=== PATIENT | male | born 1940 | race African-American/Black ===

== ENCOUNTER 2020-07-16 09:30 | Emergency (ER) | payer OTHER, MEDICAID ==
[~2020-07-16] VITALS: Ht 175.3 cm; Wt 98.0 kg
[2020-07-16 09:36] VITALS: BP 122/71
== END 2020-07-16 10:12 | disposition home or self-care (01) ==
LOC: ER 09:30
DX: T85.328A Displacement of other ocular prosthetic devices, implants and grafts, initial encounter (principal); Y77.3 Surgical instruments, materials and ophthalmic devices (including sutures) associated with adverse incidents; Y92.89 Other specified places as the place of occurrence of the external cause; H54.7 Unspecified visual loss
CPT/HCPCS: 93005; 99283

== ENCOUNTER 2021-07-29 10:44 | Emergency (ER) | payer OTHER, MEDICAID ==
[~2021-07-29] VITALS: Ht 175.3 cm; Wt 84.0 kg
[2021-07-29 11:44] LABS: CHLORIDE 107 mEq/L (98-107)
[2021-07-29 11:55] LABS: INR 1.1; PARTIAL THROMBOPLASTIN TIME 23.1 sec (23.4-31.0)
[2021-07-29 12:06] LABS: BASOPHILS % 0.6 % (0.0-2.0); EOSINOPHILS % 1.2 % (0.0-5.0); HEMATOCRIT. 27.1 % (42.0-52.0); HEMOGLOBIN. 9.2 g/dL (14.0-18.0); LYMPHOCYTES % 11.7 % (20.0-50.0); MEAN CORPUSCULAR HEMOGLOBIN 31.3 pg (28.0-32.0); MEAN CORPUSCULAR VOLUME 92.1 fL (80.0-94.0); MEAN PLATELET VOLUME 8.1 fl (7.4-10.4); MONOCYTES % 10.6 % (2.0-8.0); NEUTROPHILS % 75.9 % (40.0-76.0); PLATELET 267 x1000/uL (130-400); RED BLOOD CELL COUNT 2.94 mill/uL (4.7-6.1); RED CELL DISTRIBUTION WIDTH 17.4 % (11.6-14.6)
[2021-07-29] MEDS ORDERED: SODIUM CHLORIDE 0.9% 1,000 ML IV NR (13:00)
[2021-07-29] MEDS ORDERED: ACETAMINOPHEN 325MG TABLET PO ONE (13:30)
[2021-07-29 14:49] VITALS: BP 147/68
== END 2021-07-29 14:48 | disposition home or self-care (01) ==
LOC: ER 10:44
DX: I87.2 Venous insufficiency (chronic) (peripheral) (principal); M79.89 Other specified soft tissue disorders; I10 Essential (primary) hypertension
CPT/HCPCS: 36415; 80053; 85025; 93971; 99284

== ENCOUNTER 2022-01-10 09:35 | Emergency (ER) | payer OTHER, MEDICAID ==
[~2022-01-10] VITALS: Ht 177.8 cm; Wt 100.0 kg
[2022-01-10 09:55] VITALS: BP 165/72
== END 2022-01-10 12:09 | disposition home or self-care (01) ==
LOC: ER 09:35
DX: Z13.9 Encounter for screening, unspecified (principal)
CPT/HCPCS: 99281

== ENCOUNTER 2022-01-27 09:57 | Inpatient (IN) | payer OTHER, MEDICAID ==
[~2022-01-27] VITALS: Ht 172.7 cm; Wt 87.1 kg
[2022-01-27 11:22] LABS: BASOPHILS % 0.5 % (0.0-2.0); EOSINOPHILS % 0.2 % (0.0-5.0); HEMATOCRIT. 29.4 % (42.0-52.0); HEMOGLOBIN. 9.7 g/dL (14.0-18.0); MEAN CORPUSCULAR HEMOGLOBIN 29.2 pg (28.0-32.0); MEAN CORPUSCULAR VOLUME 88.4 fL (80.0-94.0); NEUTROPHILS % 81.3 % (40.0-76.0); PLATELET 292 x1000/uL (130-400); RED BLOOD CELL COUNT 3.33 mill/uL (4.7-6.1); RED CELL DISTRIBUTION WIDTH 19.3 % (11.6-14.6)
[2022-01-27 11:25] LABS: CHLORIDE 101 mEq/L (98-107)
[2022-01-27 11:29] LABS: INR 1.1; PARTIAL THROMBOPLASTIN TIME 30.1 sec (23.4-31.0); PROTHROMBIN TIME 11.5 sec (9.6-11.0)
[2022-01-27] MEDS ORDERED: IBUPROFEN 400MG TABLET PO ONE (11:45)
[2022-01-27] MEDS ORDERED: ASPIRIN 325MG TABLET PO ONE (12:00)
[2022-01-27] MEDS ORDERED: ASPIRIN 325MG TABLET PO SCH (14:30)
[2022-01-27 16:00] VITALS: BP 146/53
[2022-01-27 16:30] VITALS: BP 146/53
[2022-01-27] MEDS ORDERED: DOCUSATE SODIUM 100MG CAPSULE PO PRN (19:45)
[2022-01-27] MEDS ORDERED: ONDANSETRON HCL 4MG/2ML INJ IV PRN (19:45)
[2022-01-27] MEDS ORDERED: ACETAMINOPHEN 325MG TABLET PO PRN (19:45)
[2022-01-27] MEDS ORDERED: IPRATROPIUM/ALBUTEROL 0.5-3(2.5)MG/3ML NEB HHN PRN (19:45)
[2022-01-27] MEDS ORDERED: CLONIDINE 0.1MG TABLET PO PRN (19:45)
[2022-01-27 20:00] VITALS: BP 112/58
[2022-01-27] MEDS ORDERED: NALOXONE HCL 0.4MG/ML VIAL IV PRN (20:00)
[2022-01-28] VITALS (7 sets, daily range): BP systolic 110–157; BP diastolic 50–73
[2022-01-28 07:01] LABS: BASOPHILS % 0.7 % (0.0-2.0); EOSINOPHILS % 0.6 % (0.0-5.0); HEMATOCRIT. 27.4 % (42.0-52.0); HEMOGLOBIN. 9.1 g/dL (14.0-18.0); LYMPHOCYTES % 15.4 % (20.0-50.0); MEAN CORPUSCULAR HEMOGLOBIN 29.2 pg (28.0-32.0); MEAN PLATELET VOLUME 8.5 fl (7.4-10.4); MONOCYTES % 10.7 % (2.0-8.0); NEUTROPHILS % 72.6 % (40.0-76.0); PLATELET 288 x1000/uL (130-400); RED BLOOD CELL COUNT 3.12 mill/uL (4.7-6.1); RED CELL DISTRIBUTION WIDTH 19.5 % (11.6-14.6)
[2022-01-28] MEDS: FUROSEMIDE 40MG/4ML VIAL IV SCH ×2 (08:12→16:59)
[2022-01-28] MEDS: ENOXAPARIN 100MG/ML SYR SUBCUT SCH (10:22)
[2022-01-28 18:38] LABS: *AMPHETAMINES SCREEN URINE NEGATIVE (NEGATIVE); *BARBITURATES SCREEN URINE NEGATIVE (NEGATIVE); *BENZODIAZEPINES SCREEN URINE NEGATIVE (NEGATIVE); *COCAINE SCREEN URINE NEGATIVE (NEGATIVE); CANNABINOID URINE SCREEN NEGATIVE (NEGATIVE); METHADONE URINE SCREEN NEGATIVE (NEGATIVE); OPIATES URINE SCREEN NEGATIVE (NEGATIVE); PHENCYCLIDINE URINE SCREEN NEGATIVE (NEGATIVE)
[2022-01-28] MEDS: HYDROCODONE/ACETAMINOPHEN 5/325MG TABLET PO PRN (23:18)
[2022-01-29] VITALS: BP 119/71
[2022-01-29] MEDS: ACETAMINOPHEN 325MG TABLET PO PRN ×2 (00:23→21:42)
[2022-01-29] MEDS: LORAZEPAM 0.5MG TABLET PO PRN ×2 (00:23→21:41)
[2022-01-29 04:00] VITALS: BP 124/63
[2022-01-29] MEDS: HYDROCODONE/ACETAMINOPHEN 5/325MG TABLET PO PRN (04:55)
[2022-01-29 06:24] LABS: EOSINOPHILS % 0.4 % (0.0-5.0); HEMATOCRIT. 25.5 % (42.0-52.0); HEMOGLOBIN. 8.4 g/dL (14.0-18.0); LYMPHOCYTES % 13.3 % (20.0-50.0); MEAN CORPUSCULAR HEMOGLOBIN 28.9 pg (28.0-32.0); MEAN CORPUSCULAR VOLUME 88.2 fL (80.0-94.0); MONOCYTES % 11.7 % (2.0-8.0); NEUTROPHILS % 73.6 % (40.0-76.0); RED BLOOD CELL COUNT 2.89 mill/uL (4.7-6.1); RED CELL DISTRIBUTION WIDTH 19.1 % (11.6-14.6)
[2022-01-29] MEDS: FUROSEMIDE 40MG/4ML VIAL IV SCH ×2 (06:24→09:13)
[2022-01-29 07:15] LABS: PHOSPHORUS 3.7 mg/dL (2.5-4.9)
[2022-01-29 07:38] VITALS: BP 107/62
[2022-01-29 08:42] LABS: PLATELET 298 x1000/uL (130-400)
[2022-01-29] MEDS: ENOXAPARIN 100MG/ML SYR SUBCUT SCH (09:13)
[2022-01-29 11:55] VITALS: BP 116/53
[2022-01-29 15:18] VITALS: BP 100/66
[2022-01-29 15:46] LABS: CLARITY URINE CLEAR (CLEAR); COLOR URINE YELLOW (YELLOW); KETONES URINE NEGATIVE (NEGATIVE); LEUKOCYTE ESTERASE URINE 2+ (NEGATIVE); NITRITE URINE NEGATIVE (NEGATIVE); OCCULT BLOOD URINE NEGATIVE (NEGATIVE); PROTEIN URINE NEGATIVE (NEGATIVE); SPECIFIC GRAVITY URINE 1.008 (1.005-1.030); UROBILINOGEN URINE 0.2 E.U./dL (0.2-1.0)
[2022-01-29 20:00] VITALS: BP 130/64
[2022-01-30] VITALS: BP 121/60
[2022-01-30 04:00] VITALS: BP 103/60
[2022-01-30] MEDS: HYDROCODONE/ACETAMINOPHEN 5/325MG TABLET PO PRN ×2 (05:45→13:36)
[2022-01-30 08:00] VITALS: BP 115/62
[2022-01-30 08:15] LABS: BASOPHILS % 0.3 % (0.0-2.0); EOSINOPHILS % 0.5 % (0.0-5.0); HEMATOCRIT. 26.7 % (42.0-52.0); HEMOGLOBIN. 8.9 g/dL (14.0-18.0); LYMPHOCYTES % 13.6 % (20.0-50.0); MEAN CORPUSCULAR HEMOGLOBIN 28.9 pg (28.0-32.0); MEAN CORPUSCULAR VOLUME 86.8 fL (80.0-94.0); MEAN PLATELET VOLUME 8.2 fl (7.4-10.4); MONOCYTES % 9.4 % (2.0-8.0); NEUTROPHILS % 76.2 % (40.0-76.0); PLATELET 352 x1000/uL (130-400); RED BLOOD CELL COUNT 3.07 mill/uL (4.7-6.1)
[2022-01-30 09:06] LABS: PHOSPHORUS 3.7 mg/dL (2.5-4.9)
[2022-01-30 09:10] LABS: IMMUNOGLOBULIN A 265 mg/dL (61-437); IMMUNOGLOBULIN G 1737 mg/dL (603-1613); IMMUNOGLOBULIN M 139 mg/dL (15-143)
[2022-01-30 12:00] VITALS: BP 120/66
[2022-01-30] MEDS: FUROSEMIDE 40MG TABLET PO SCH (13:36)
[2022-01-30 16:00] VITALS: BP 145/74
[2022-01-30] MEDS: APIXABAN 5 MG TABLET PO SCH (17:49)
[2022-01-30 20:00] VITALS: BP 118/56
[2022-01-30] MEDS: LORAZEPAM 0.5MG TABLET PO PRN (20:22)
[2022-01-30] MEDS: ACETAMINOPHEN 325MG TABLET PO PRN (20:23)
[2022-01-31] VITALS (8 sets, daily range): BP systolic 94–139; BP diastolic 45–67
[2022-01-31 07:39] LABS: BASOPHILS % 0.3 % (0.0-2.0); EOSINOPHILS % 0.5 % (0.0-5.0); HEMATOCRIT. 24.9 % (42.0-52.0); HEMOGLOBIN. 8.5 g/dL (14.0-18.0); LYMPHOCYTES % 8.9 % (20.0-50.0); MEAN CORPUSCULAR HEMOGLOBIN 29.4 pg (28.0-32.0); MONOCYTES % 7.7 % (2.0-8.0); NEUTROPHILS % 82.6 % (40.0-76.0); PLATELET 390 x1000/uL (130-400); RED CELL DISTRIBUTION WIDTH 19.1 % (11.6-14.6)
[2022-01-31 08:07] LABS: PHOSPHORUS 3.4 mg/dL (2.5-4.9)
[2022-01-31 09:06] LABS: IMMUNOGLOBULIN A 256 mg/dL (61-437); IMMUNOGLOBULIN G 1795 mg/dL (603-1613); IMMUNOGLOBULIN M 139 mg/dL (15-143)
[2022-01-31] MEDS: FUROSEMIDE 40MG TABLET PO SCH (09:30)
[2022-01-31] MEDS: APIXABAN 5 MG TABLET PO SCH ×2 (09:30→17:54)
[2022-01-31] MEDS: BICALUTAMIDE 50 MG TABLET PO SCH (09:31)
[2022-01-31] MEDS: ACETAMINOPHEN 325MG TABLET PO PRN (09:31)
[2022-02-01] VITALS (7 sets, daily range): BP systolic 115–145; BP diastolic 51–70
[2022-02-01 07:29] LABS: BASOPHILS % 0.3 % (0.0-2.0); EOSINOPHILS % 0.4 % (0.0-5.0); HEMOGLOBIN. 8.7 g/dL (14.0-18.0); LYMPHOCYTES % 8.7 % (20.0-50.0); MEAN CORPUSCULAR HEMOGLOBIN 28.8 pg (28.0-32.0); MEAN CORPUSCULAR VOLUME 86.3 fL (80.0-94.0); MEAN PLATELET VOLUME 7.9 fl (7.4-10.4); MONOCYTES % 8.4 % (2.0-8.0); NEUTROPHILS % 82.2 % (40.0-76.0); PLATELET 416 x1000/uL (130-400); RED BLOOD CELL COUNT 3.01 mill/uL (4.7-6.1); RED CELL DISTRIBUTION WIDTH 18.4 % (11.6-14.6)
[2022-02-01 07:54] LABS: PHOSPHORUS 3.2 mg/dL (2.5-4.9)
[2022-02-01] MEDS: FUROSEMIDE 40MG TABLET PO SCH (09:39)
[2022-02-01] MEDS: BICALUTAMIDE 50 MG TABLET PO SCH (09:39)
[2022-02-01] MEDS: APIXABAN 5 MG TABLET PO SCH ×2 (09:41→16:18)
[2022-02-02 03:36] VITALS: BP 126/67
[2022-02-02 07:46] LABS: BASOPHILS % 0.3 % (0.0-2.0); EOSINOPHILS % 1.4 % (0.0-5.0); HEMATOCRIT. 26.6 % (42.0-52.0); HEMOGLOBIN. 8.9 g/dL (14.0-18.0); LYMPHOCYTES % 11.9 % (20.0-50.0); MEAN CORPUSCULAR HEMOGLOBIN 28.7 pg (28.0-32.0); MEAN CORPUSCULAR VOLUME 86.2 fL (80.0-94.0); MEAN PLATELET VOLUME 7.9 fl (7.4-10.4); MONOCYTES % 9.4 % (2.0-8.0); PLATELET 445 x1000/uL (130-400); RED BLOOD CELL COUNT 3.09 mill/uL (4.7-6.1); RED CELL DISTRIBUTION WIDTH 18.8 % (11.6-14.6)
[2022-02-02 08:00] VITALS: BP 134/77
[2022-02-02 08:01] LABS: PHOSPHORUS 2.9 mg/dL (2.5-4.9)
[2022-02-02] MEDS: FUROSEMIDE 40MG TABLET PO SCH (09:07)
[2022-02-02] MEDS: BICALUTAMIDE 50 MG TABLET PO SCH (09:07)
[2022-02-02] MEDS: APIXABAN 5 MG TABLET PO SCH ×2 (09:07→16:00)
[2022-02-02] MEDS ORDERED: BICA50TA48 PO ×3 (10:04→10:05)
[2022-02-02] MEDS ORDERED: APIX5TAB PO (10:04)
[2022-02-02] MEDS ORDERED: FURO40TA5 PO (10:04)
[2022-02-02 12:00] VITALS: BP 149/77
[2022-02-02] MEDS ORDERED: HYDROCODONE/ACETAMINOPHEN 5/325MG TABLET PO PRN (13:00)
[2022-02-02] MEDS ORDERED: LACTULOSE 20G/30ML UDC PO SCH (13:00)
[2022-02-02] MEDS ORDERED: NALOXONE HCL 0.4MG/ML VIAL IV PRN (13:15)
[2022-02-02 16:00] VITALS: BP 149/80
[2022-02-02] MEDS ORDERED: MAGNESIUM 2 G PREMIX 50 ML IV NR (16:30)
[2022-02-02 20:00] VITALS: BP_SYST 119; BP_SYST 160; BP_DIAS 68; BP_DIAS 75
[2022-02-03] VITALS: BP 119/68
[2022-02-03 03:29] VITALS: BP 123/65
[2022-02-03 07:12] LABS: BASOPHILS % 0.4 % (0.0-2.0); EOSINOPHILS % 1.9 % (0.0-5.0); HEMATOCRIT. 26.2 % (42.0-52.0); HEMOGLOBIN. 8.8 g/dL (14.0-18.0); LYMPHOCYTES % 12.6 % (20.0-50.0); MEAN CORPUSCULAR HEMOGLOBIN 29.1 pg (28.0-32.0); MEAN CORPUSCULAR VOLUME 86.6 fL (80.0-94.0); MEAN PLATELET VOLUME 7.8 fl (7.4-10.4); MONOCYTES % 8.3 % (2.0-8.0); NEUTROPHILS % 76.8 % (40.0-76.0); PLATELET 499 x1000/uL (130-400); RED BLOOD CELL COUNT 3.03 mill/uL (4.7-6.1); RED CELL DISTRIBUTION WIDTH 18.7 % (11.6-14.6)
[2022-02-03 07:33] LABS: PHOSPHORUS 3.4 mg/dL (2.5-4.9)
[2022-02-03 08:00] VITALS: BP 164/83
[2022-02-03] MEDS: APIXABAN 5 MG TABLET PO SCH ×2 (08:57→16:58)
[2022-02-03] MEDS: BICALUTAMIDE 50 MG TABLET PO SCH (08:58)
[2022-02-03] MEDS: FUROSEMIDE 40MG TABLET PO SCH (08:58)
[2022-02-03] MEDS ORDERED: BISACODYL 10MG SUPP PR NR (09:15)
[2022-02-03 12:00] VITALS: BP 112/54
[2022-02-03 16:00] VITALS: BP 102/49
[2022-02-03 20:00] VITALS: BP 103/50
[2022-02-04] VITALS: BP 119/56
[2022-02-04 04:00] VITALS: BP 95/51
[2022-02-04 08:00] VITALS: BP 117/56
[2022-02-04] MEDS: APIXABAN 5 MG TABLET PO SCH (08:33)
[2022-02-04] MEDS: FUROSEMIDE 40MG TABLET PO SCH (08:33)
[2022-02-04] MEDS: BICALUTAMIDE 50 MG TABLET PO SCH (08:33)
[2022-02-04 09:11] VITALS: BP 117/56
== END 2022-02-04 10:35 | disposition home health service (06) | DRG 299 ==
LOC: ER 09:57 → 8WST 13:41 → EDBEDREQTM 13:43 → EDBEDREQ 13:43 → ENRESERV 14:12 → UNDODISIN 02-03 15:00
PROVIDERS: ADMIT Internal Medicine; ATTEND Internal Medicine
DX: I82.412 Acute embolism and thrombosis of left femoral vein (principal); I50.41 Acute combined systolic (congestive) and diastolic (congestive) heart failure; I13.0 Hypertensive heart and chronic kidney disease with heart failure and stage 1 through stage 4 chronic kidney disease, or unspecified chronic kidney disease; I48.92 Unspecified atrial flutter; N17.9 Acute kidney failure, unspecified; I82.622 Acute embolism and thrombosis of deep veins of left upper extremity; E11.22 Type 2 diabetes mellitus with diabetic chronic kidney disease; E78.5 Hyperlipidemia, unspecified; H54.3 Unqualified visual loss, both eyes; I48.0 Paroxysmal atrial fibrillation; H91.90 Unspecified hearing loss, unspecified ear; R77.8 Other specified abnormalities of plasma proteins; E83.42 Hypomagnesemia; N18.30 Chronic kidney disease, stage 3 unspecified; D63.1 Anemia in chronic kidney disease; C61 Malignant neoplasm of prostate; Z82.49 Family history of ischemic heart disease and other diseases of the circulatory system; Z79.01 Long term (current) use of anticoagulants
CPT/HCPCS: 36415; 71045; 76770; 78306; 80048; 80053; 80061; 80305; 81003; 82533; 82550; 82784; 83036; 83540; 83550; 83735; 83880; 84100; 84153; 84443; 84484; 85025; 86334; 93005; 93306; 93970; 97162; 99285; A9503; C1893; J1650; J1940; J3475; G0103